=== PATIENT | female | born 1950 | race Caucasian/White ===

== ENCOUNTER 2016-06-10 11:24 | Observation (INO) ==
[2016-06-10] MEDS ORDERED: Aspirin 81 MG TAB.CHEW PO ONE (11:55)
--- NOTE | 2016-06-10 12:08 | Emergency Department Note ---
START Narrative - START START: I examined this patient and my medical decision-making was reviewed with the CENTER RECEPTIONIST/PA/Advanced Practice Nurse/Resident Physician. I agree with the documented findings, disposition and treatment plan as described except to the extent set forth below. ED attending: Patient's emergency medicine resident Dr. Quintanilla. Please see copy of this note for H&P evaluation and management and ED disposition. We both had independent [id number] time in contact with this patient. Briefly: 66-year-old female history of prior CVA presents with about 2 weeks of headache visual disturbances on the left side and pain in the left arm worse with movement. Discomfort with left arm movement slight visual disturbance in the left eye as far as blurriness but no visual field cut. No focal neurologic findings. CT of the head and neck are pending. Disposition pending. Patient stable.
[2016-06-10 12:38] LABS: Basophils # 0.1 K/mcL (0.0-0.2); Basophils % 0.8 %; Eosinophils # 0.2 K/mcL (0.0-0.6); Eosinophils % 1.8 %; Hematocrit 44.6 % (35.3-44.9); Immature Granulocytes % 0.3 % (0-4); Lymphocytes % 30.5 %; Mean Corpuscular HGB Conc 33.6 g/dL (31.6-35.5); Mean Corpuscular Hemoglobin 32.1 pg (28.0-33.3); Mean Corpuscular Volume 95.5 fL (83.0-100.0); Mean Platelet Volume 9.7 fL (9.4-12.4); Monocytes # 0.9 K/mcL (0.0-1.3); Monocytes % 9.4 %; Neutrophils # 5.5 K/mcL (1.6-8.9); Platelet Count 475 K/mcL (140-400); Red Blood Count 4.67 M/mcL (3.82-4.97); Red Cell Distribution Width 12.6 % (11.5-14.5); Segmented Neutrophils % 57.2 %
--- NOTE | 2016-06-10 12:39 | Emergency Department Note ---
Disposition Clinical Impression: Vision changes, Numbness and tingling in left arm Headache Qualifiers: Headache type: unspecified Headache chronicity pattern: unspecified pattern Intractability: not intractable Qualified Code(s): R51 - Headache Disposition: Home, Self-Care Condition: Critical Referrals: David Cherry MD [Primary Care Provider] - Forms: ED Satisfaction Letter Time of Disposition: 14:10 General Adult HPI - General Chief complaint: ED Headache Stated complaint: Headache/neck pain/left arm numb x5 days Time Seen by Provider: 06/10/16 11:36 Source: patient Limitations: no limitations Nursing Notes Reviewed: Yes Vital Signs Reviewed: Yes - History of Present Illness HPI Narrative: Mrs. Lucas, a 66yo female, presents from home by POV with CC: headache, left arm tingling. Hx seizure on Keppra, denies recent seizure, no missed doses of Keppra, no hx trauma. Headache onset 2.5 weeks ago, localized at the occipotal base without radiation. Associated with intermittent double vision which gives her difficulty ambulating, midline and paraspinal neck pain worrse with flexion and head rotation. 4 days ago, her left arm began tingling with numbness. Localized from fingertip to the level of the shoulder. Admits: headache, neck pain, vision changes, left arm tingling and numbness. Denies: fever, chills, weakness, falls or trauma, recent seizures, changes in hearing, denies room spinning, chest pain, palpitations. PMH: seizure disorder, hx CVA 2/2 seizure disorder (patient notes no resulting sequale or neuro deficits), Aortic stenosis with murmor recommended for valve replacement. Pain Scale: 9 - Related Data Home Medications Medication Instructions Recorded Confirmed Aspirin [Adult Low Dose Aspirin EC] 07/07/15 Calcium 07/07/15 Coq10 07/07/15 Endocet 10-325 mg Tablet 07/07/15 Fish Oil 07/07/15 Levetiracetam 07/07/15 Fxxrv-Hkuhgsh-Etppengc Tablet 07/07/15 Neurontin 07/07/15 Oyster Shell Calcium-Magnes Tb 07/07/15 Ranitidine HCl 07/07/15 Tizanidine HCl 07/07/15 TraZODone 07/07/15 Xanax 07/07/15 Zocor 07/07/15 07/07/15 Previous Rx's Medication Instructions Recorded Doxycycline 100 mg PO BID #42 capsule 07/07/15 Promethazine [Phenergan] 25 mg PO Q6-8H PRN #9 tablet 07/07/15 Benzonatate [Tessalon] 200 mg PO TID PRN #30 capsule 02/08/16 Cephalexin [Keflex] 500 mg PO QID #40 capsule 02/08/16 MethylPREDNISolone [Medrol] 4 mg PO TAPER #21 tablet 02/08/16 Allergies Allergy/AdvReac Type Severity Reaction Status Date / Time midazolam [From Versed] Allergy Agitated Verified 02/08/16 10:33 morphine AdvReac Nausea Verified 05/20/15 13:07 All systems ED: reviewed and negative except as stated. (as per HPI) Past Medical History - Past Medical History Medical history: Reports: COPD, hyperlipidemia, hypertension, seizures, valvular heart disease - Social History Smoking Status: Current every day smoker Smokeless Tobacco Status: No Alcohol use: Reports: none Drug use: Reports: marijuana Physical Exam General: Patient is alert, oriented, and in no acute distress. HEENT: No facial asymmetry at rest. YES facial asymmetry with smile, eyebrow raise, mild left ptosis. Head is normocephalic and atraumatic. PERRLA, EOMI. Nasal turbinates moist and pink. Posterior pharynx without exudates or cobblestoning. Trachea midline. No lymphadenopathy. Cardiovascular: Heart regular rate and rhythm without clicks, rubs, gallops. Grade 3/5 holosystolic murmor ar RUSB with radiation to right carotid. No JVD. PMI nondisplaced. Respiratory: Symmetric chest rise with good respiratory effort. Bilateral breath sounds are clear without wheezing, crackles, or rhonchi. Abdomen: Bowel sounds present normoactive x-4 quadrants. Abdomen is soft, nondistended, and nontender. No organomegaly noted. Musculoskeletal: Muscle strength 5/5 and symmetric bilaterally in upper and lower extremities. DTRs 2/4 and symmetric bilaterally in upper and lower extremities. Reproducable skeletal pain paracervical spine and upper shoulder. Neuro: Cranial nerves II through XII without deficit. Sensation to pinprick deficit in left UE from level of fingertips to approximate AC joint. Psych: Patient's affect is appropriate for situation. - General Limitations: no limitations General appearance: alert, in no apparent distress Course Course Narrative: Will perform stroke work-up. Will not call code stroke as patient's symptoms have persisted for 2.5 weeks. Concern is for intracranial pathology. NIHSS 1 - partial facial asymmetry Patient's Labwork unremarkable, specifically negative troponin, unremarkable electrolytes. CT head, CT neck, and CXR negative. Chest X-Ray 06/10/16 11:56 IMPRESSION: No acute cardiopulmonary findings. D/ / Eleanor Tolentino MD / Eleanor Tolentino MD Interpreting Provider: Eleanor Tolentino MD Head CT 06/10/16 11:58 IMPRESSION: No acute intracranial abnormality. Sphenoid sinus disease as above. D/ / Shun Monsivais MD / Shun Monsivais MD Interpreting Provider: Shun Monsivais MD Cervical Spine CT 06/10/16 12:05 IMPRESSION: No evidence of acute fracture or subluxation. D/ / Pete Lazo MD / Pete Lazo MD Interpreting Provider: Pete Lazo MD Her headache improved mildly with acetaminophen. There is no family bedside to confirm timeline of symptoms or chronicity of her facial motor sighs. After discussion with patient, she would be unable to follow-up with her PCP until Monday. She preferred to come in for continue work-up. 14:[address] Pagan, she agrees to admit to obs. Vital Signs Temperature 98.5 F 06/10/16 11:25 Pulse Rate 71 06/10/16 11:25 Respiratory Rate 16 06/10/16 11:25 Blood Pressure 108/77 06/10/16 11:25 O2 Sat by Pulse Oximetry 93 L 06/10/16 11:25 Temperature 98.5 F 06/10/16 11:25 Pulse Rate 57 06/10/16 13:30 Respiratory Rate 16 06/10/16 13:30 Blood Pressure 108/67 06/10/16 13:30 O2 Sat by Pulse Oximetry 98 06/10/16 13:30 Oxygen Delivery Oxygen Delivery Nasal Cannula Medical Decision Making - Lab Data Result diagrams: 06/10/16 12:30 06/10/16 12:30 Lab Results 06/10/16 06/10/16 06/10/16 Range/Units 12:22 12:30 12:30 WBC 9.7 (4.3-11.1) K/mcL RBC 4.67 (3.82-4.97) M/mcL Hgb 15.0 (11.5-15.4) g/dL Hct 44.6 (35.3-44.9) % MCV 95.5 (83.0-100.0) fL MCH 32.1 (28.0-33.3) pg MCHC 33.6 (31.6-35.5) g/dL RDW 12.6 (11.5-14.5) % Plt Count 475 H (140-400) K/mcL MPV 9.7 (9.4-12.4) fL Immature Gran % 0.3 (0-4) % Seg Neutrophils % 57.2 % Lymphocytes % 30.5 % Monocytes % 9.4 % Eosinophils % 1.8 % Basophils % 0.8 % Neutrophils # 5.5 (1.6-8.9) K/mcL Lymphocytes # 3.0 (0.6-4.6) K/mcL Monocytes # 0.9 (0.0-1.3) K/mcL Eosinophils # 0.2 (0.0-0.6) K/mcL Basophils # 0.1 (0.0-0.2) K/mcL PT 11.4 (9.4-12.1) Seconds INR 1.1 APTT 29.9 (26.0-36.0) Seconds Sodium (136-145) mEq/L Potassium (3.5-4.5) mEq/L Chloride (98-109) mEq/L Carbon Dioxide (19-29) mEq/L BUN (7-20) mg/dL Creatinine (0.57-1.11) mg/dL Est GFR ( Amer) (> 60) Est GFR (Non-Af Amer) (> 60) BUN/Creatinine Ratio (6-26) Glucose (70-99) mg/dL POC Glucose 99 H (58-89) Calculated Osmolality (280-300) Calcium (8.6-10.8) mg/dL Troponin I (0-0.03) ng/mL 06/10/16 02 Range/Units 12:30 12:30 WBC (4.3-11.1) K/mcL RBC (3.82-4.97) M/mcL Hgb (11.5-15.4) g/dL Hct (35.3-44.9) % MCV (83.0-100.0) fL MCH (28.0-33.3) pg MCHC (31.6-35.5) g/dL RDW (11.5-14.5) % Plt Count (140-400) K/mcL MPV (9.4-12.4) fL Immature Gran % (0-4) % Seg Neutrophils % % Lymphocytes % % Monocytes % % Eosinophils % % Basophils % % Neutrophils # (1.6-8.9) K/mcL Lymphocytes # (0.6-4.6) K/mcL Monocytes # (0.0-1.3) K/mcL Eosinophils # (0.0-0.6) K/mcL Basophils # (0.0-0.2) K/mcL PT (9.4-12.1) Seconds INR APTT (26.0-36.0) Seconds Sodium 140 (136-145) mEq/L Potassium 5.1 H (3.5-4.5) mEq/L Chloride 104 (98-109) mEq/L Carbon Dioxide 26 (19-29) mEq/L BUN 22 H (7-20) mg/dL Creatinine 0.72 (0.57-1.11) mg/dL Est GFR ( Amer) > 60 (> 60) Est GFR (Non-Af Amer) > 60 (> 60) BUN/Creatinine Ratio 31 H (6-26) Glucose 94 (70-99) mg/dL POC Glucose (58-89) Calculated Osmolality 293 (280-300) Calcium 9.9 (8.6-10.8) mg/dL Troponin I 0.01 (0-0.03) ng/mL
[2016-06-10 12:43] LABS: INR 1.1; Prothrombin Time 11.4 Seconds (9.4-12.1)
[2016-06-10 12:46] LABS: Activated Partial Thrombo Time 29.9 Seconds (26.0-36.0)
[2016-06-10 12:50] LABS: BUN/Creatinine Ratio 31 (6-26); Blood Urea Nitrogen 22 mg/dL (7-20); Calcium 9.9 mg/dL (8.6-10.8); Carbon Dioxide 26 mEq/L (19-29); Chloride 104 mEq/L (98-109); Glucose 94 mg/dL (70-99); Osmolality,Calculated 293 (280-300); Sodium 140 mEq/L (136-145); eGFR For African Americans > 60 (> 60); eGFR For Non-African Americans > 60 (> 60)
[2016-06-10 12:51] LABS: Potassium 5.1 mEq/L (3.5-4.5)
[2016-06-10] MEDS ORDERED: Ipratropium/Albuterol Neb 3 ML IH PRN (16:15)
[2016-06-10] MEDS ORDERED: *HR* Morphine 2 MG/ML SYRINGE IV PRN (16:15)
[2016-06-10] MEDS ORDERED: Acetaminophen 325 MG TABLET PO PRN (16:16)
[2016-06-10] MEDS ORDERED: Naloxone 0.4 MG/ML INJ IVP PRN (16:16)
[2016-06-10] MEDS ORDERED: Ondansetron 4 MG/2 ML VIAL IVP PRN (16:16)
--- NOTE | 2016-06-10 16:24 | Internal Med History&Physical ---
Date of Encounter: 06/10/16 Time of Encounter: 16:21 Assessment and Plan (1) Ptosis of eyelid, left Current visit: Yes Status: Acute History of CVA with no apparent residues Continue aspirin, neuro checks MRI of the brain (Dr. Islas recommended an MRI, the fact that the patient has a spinal rods should not interfere with this procedure, okay per neurology) Carotid ultrasound and echocardiogram PTOT, subcutaneous heparin, statin, check a lipid panel Fall precautions (2) Diplopia Current visit: Yes Status: Acute (3) Seizure Current visit: Yes Status: Acute Continue Keppra (4) Aortic stenosis Current visit: Yes Status: Acute Severe aortic stenosis Mentions that she was told that she has not been able to have a surgical procedure she has not been able to quit smoking Arctic valve area 0.6 in 2015 Qualifiers: Cardiac valve disease etiology: etiology unspecified Qualified Code(s): I35.0 - Nonrheumatic aortic (valve) stenosis (5) COPD (chronic obstructive pulmonary disease) Current visit: Yes Status: Acute No exacerbation Inhalers as needed Qualifiers: COPD type: emphysema Emphysema type: unspecified Qualified Code(s): J43.9 - Emphysema, unspecified (6) Headache Current visit: Yes Status: Acute Qualifiers: Headache type: unspecified Headache chronicity pattern: unspecified pattern Intractability: not intractable Qualified Code(s): R51 - Headache (7) Numbness and tingling in left arm Current visit: Yes Status: Acute (8) Sinusitis Current visit: Yes Status: Acute Continue Rocephin Qualifiers: Sinusitis location: sphenoidal Chronicity: acute Recurrence: not specified as recurrent Qualified Code(s): J01.30 - Acute sphenoidal sinusitis , unspecified (9) Tobacco abuse Current visit: Yes Status: Acute Smoking cessation counseling given for 5 min Nicotine patch (10) Bronchitis Current visit: Yes Status: Acute Possibly bacterial Continue Rocephin The patient will be admitted for observation. Full code. Time spent on this admission 40 minutes. High risk due to prior CVA with new symptoms. We receive omeprazole for GI prophylaxis and subcutaneous tennis happening for DVT prophylaxis. Internal Medicine - H&P: HPI Chief complaint: Eyelid weakness and double vision Admitted From: Emergency Dept History of present illness: Ms. Lucas is a 66 year old female with a past medical history of tobacco abuse, possible prior CVA, COPD not oxygen dependent, hyperlipidemia and seizure disorder currently on Keppra [facility] complaining of left eyelid weakness for the past 3 weeks accompanied by double vision and left upper extremity numbness. Patient has been also complaining of occipital headache for more than 2 weeks also neck pain. CT scan of the head was performed that did not show any acute intracranial hemorrhage or abnormality, showed sphenoid left sinus disease with a fluid level. Patient's potassium has been 5.1 platelets 475 she said that she had a viral respiratory infection 3 weeks ago and still has a productive cough. She feels dizzy at times and double vision worsens with movement. CT scan of the neck did not show any major abnormality except for mild multilevel osseous neural foraminal narrowing. Has been feeling very weak. Denies any chest pain Past Med Surg Social Fam HX - Past Medical History Medical history: COPD, hyperlipidemia, hypertension, seizures (Not oxygen dependent using Keppra), valvular heart disease (Severe aortic stenosis not able to have a replacement as she has not been able to stop smoking), other (CVA , severe aortic stenosis with a possible bicuspid valve aortic valve area of 0.6 last echocardiogram of October 2014 with an ejection fraction of 65-70%, mild diastolic dysfunction, insomnia, anxiety, GERD, left subclavian artery stenoses , osteoporosis, benzodiazepine overdose in the past, tobacco use, COPD not oxygen dependent) Psychiatric history: anxiety, depression (Psychiatry admissions in the past) - Past Surgical History Surgical History: appendectomy, hysterectomy, orthopedic, other (Left shoulder total replacement, back surgery with rods for fixation) - Social History Smoking Status: Current every day smoker Packs per day: 0.5, smoke 1 and 1-1/2 packs per day in the past Smokeless Tobacco Status: No Alcohol use: none Drug use: marijuana - Family History Mother Hx Family Cardiac Disorders: Yes (HI) - Additional Family History Additional family history: Sister with throat cancer and mother with CHF Internal Medicine - H&P: Meds Albuterol Sulfate [Albuterol Inhaler] 2 puff IH Q4HR PRN 06/10/16 [History] Alprazolam [Xanax 1 MG Tablet] 1 mg PO TID PRN 06/10/16 [History] Aspirin [Lo-Dose Aspirin EC] 81 mg PO DAILY 06/10/16 [History] Bupropion HCl [Zyban] 150 mg PO BID 06/10/16 [History] Calcium Carbonate/Vitamin D3 [Oyster Shell Calcium-Vit D Tab] 1 tab PO DAILY 07/22 [History] Denosumab [Prolia (For Outpatient Infusion)] 60 mg SQ [id number] 06/10/16 [History ] Ergocalciferol (VITAMIN D2) [Vitamin D2] 50,000 unit PO QWEEK 06/10/16 [History] Gabapentin [Neurontin] 600 mg PO BID 06/10/16 [History] Ipratropium/Albuterol Neb [Duoneb] 3 ml IH Q6HR PRN 06/10/16 [History] LevETIRAcetam [Keppra] 500 mg PO BID 06/10/16 [History] Metoprolol [Lopressor] 12.5 mg PO BID 06/10/16 [History] Multivitamin [Multi-Day Vitamins] 1 tab PO DAILY 06/10/16 [History] Jerome-3 Fatty Acids [Fish Oil] 300 mg PO BID 06/10/16 [History] Oxycodone HCl/Acetaminophen [Percocet 7.5-325 mg Tablet] 1 tab PO TID PRN [History] Ranitidine HCl [Acid Client Experience Manager] 150 mg PO BID PRN 06/10/16 [History] Simvastatin [Zocor] 20 mg PO DAILY 06/10/16 [History] Tizanidine HCl [Zanaflex] 4 mg PO TID PRN 06/10/16 [History] TraZODone 50 mg PO HS 06/10/16 [History] Ubidecarenone [Co Q-10] 10 mg PO DAILY 06/10/16 [History] Allergies midazolam [From Versed] Allergy (Verified 02/08/16 10:33) Agitated morphine Allergy (Verified 06/10/16 14:41) Itching All Systems PM: A 10-system review of systems was performed and is negative for pertinent findings except as documented above in the HPI. Review of systems: Complains of left upper extremity weakness at baseline from prior total right shoulder shoulder replacement. Denies any chest pain, short of breath, no abdominal pain, no dysuria, no fevers. Other systems out of the 10 review were negative - Constitutional Vitals: Temp Pulse Resp BP Pulse Ox 97.6 F 56 16 110/83 97 06/10/16 15:49 06/10/16 15:49 06/10/16 15:49 06/10/16 15:49 06/10/16 15:49 General appearance: Present: A&O X 3, underweight - Head Head exam: Present: atraumatic, normocephalic Additional comments: Left palpebral ptosis - Eye Eye exam: Present: PERRL, conjuntiva pink, sclera anicteric Pupils: Present: PERRL - Neck Neck exam general surgery: Present: supple, trachea midline. Absent: lymphadenopathy - Respiratory Respiratory exam: Present: CTAB. Absent: accessory muscle use, rales, rhonchi, wheezes - Cardiovascular Cardiovascular exam: Present: RRR, +S1, +S2, systolic murmur (Severe 3/6 systolic murmur radiating to the aortic area). Absent: diastolic murmur, gallop , rubs - GI/Abdominal GI/Abdominal exam: Present: normal bowel sounds, soft, no peritoneal signs. Absent: distended, tenderness - Extremities Exam Extremities exam: Present: warm, radial pulses palpable and symetrical. Absent : calf tenderness, cyanotic, pedal edema - Neurological Exam Neurological exam: Present: CN II-XII intact, oriented X3, no focal deficits. Absent: pronater drift, facial droop, speech deficit Additional comments: Left upper extremity weakness due to prior shoulder surgery, numbness almost the entire left upper extremity sparing the hand - Skin Skin exam: Present: dry, intact Internal Med - H&P Results - Labs CBC & Chem 7: 06/10/16 12:30 06/10/16 12:30
[2016-06-10] MEDS: Aspirin Enteric Coated 81 MG Tablet PO SCH (18:23)
[2016-06-10] MEDS: Nicotine 21 MG PATCH.TD24 TD SCH (18:23)
[2016-06-10] MEDS: 0.9 % Sodium Chloride 1,000 ML IVC SCH (18:24)
[2016-06-10] MEDS: ALPRAZolam 1 MG TABLET PO PRN (19:29)
[2016-06-10] MEDS ORDERED: traZODone 50 MG TABLET PO SCH (21:00)
[2016-06-10] MEDS: levETIRAcetam 250 MG TABLET PO SCH (21:16)
[2016-06-10] MEDS: *HR* OxyCODONE/APAP 7.5/325 TABLET PO PRN (21:16)
[2016-06-10] MEDS: BuPROPion SR (12 HR) 150 MG TABLET PO SCH (21:17)
[2016-06-10] MEDS: Gabapentin 300 MG CAPSULE PO SCH (21:17)
[2016-06-10] MEDS: *HR* Heparin 5,000 UNIT/ML VIAL SQ SCH (23:05)
[2016-06-11] MEDS: ALPRAZolam 1 MG TABLET PO PRN ×2 (04:07→12:14)
[2016-06-11 04:30] LABS: BUN/Creatinine Ratio 25 (6-26); Blood Urea Nitrogen 16 mg/dL (7-20); Calcium 8.8 mg/dL (8.6-10.8); Carbon Dioxide 23 mEq/L (19-29); Chloride 108 mEq/L (98-109); Chol/HDL Ratio 3.2 (0-4.9); Cholesterol 129 mg/dL (< 200); Glucose 85 mg/dL (70-99); HDL Cholesterol 40 mg/dL (40-59); LDL Cholesterol,Calculated 72 mg/dL (0-99); Osmolality,Calculated 288 (280-300); Sodium 139 mEq/L (136-145); Triglycerides 83 mg/dL (< 150); eGFR For African Americans > 60 (> 60); eGFR For Non-African Americans > 60 (> 60)
[2016-06-11 04:36] LABS: Potassium 3.9 mEq/L (3.5-4.5)
[2016-06-11] MEDS: *HR* OxyCODONE/APAP 7.5/325 TABLET PO PRN ×2 (06:38→14:34)
--- NOTE | 2016-06-11 07:59 | ECHO - Doppler Report ---
Echo with Saline Contrast Name: Aida Lucas Date of Study: 06/10/2016 Date: 1950 Ht: 59.0 in Medical Record#: [id number] Age: 66 Wt: 93.0 lb Gender: Female BSA: 1.33 Order #: [id number] Location: [facility] Room #: [id number] Reading Physician: Feliberto Joaquin DO, FACMarya, EMRE BHATT Offset Assistant Press Operator: Marija Marrufo RDCS Ordering Physician: Stephan Garcia MD Primary Physician: David Cherry MD Indications: Cerebrovascular Accident Impressions: LVEF 60-65%. Normal LV chamber size and function. Mild concentric left ventricular hypertrophy. Mild left ventricular diastolic dysfunction. Normal right ventricular structure and function. No evidence of PFO with agitated saline contrast. Aortic valve not well visualized. The number of leaflets cannot be determined. Grossly, the aortic valve is calcified. Critical aortic stenosis. Mean gradient 62 mmHg. Peak velocity 5.21 m/s. STACY < 0.7 cm2. Unable to estimate RVSP due to lack of TR jet. Message sent to Dr. Garcia via [employer]. Left Ventricular Wall Motion: Rest Echo Findings All wall segments showed normal motion. Findings: Study Quality * Technically adequate exam. ECG Findings * Sinus bradycardia. Left Ventricle * LVEF 60-65%. * Normal LV chamber size and function. * Mild concentric left ventricular hypertrophy. * Mild left ventricular diastolic dysfunction. Right Ventricle * Normal right ventricular structure and function. Left Atrium * Mildly dilated left atrium. Right Atrium * Normal right atrial size. Interatrial Septum * No evidence of PFO with agitated saline contrast. Aortic Valve * Aortic valve not well visualized. The number of leaflets cannot be determined. * Grossly, the aortic valve is calcified. * Critical aortic stenosis. Mean gradient 62 mmHg. Peak velocity 5.21 m/s. STACY < 0.7 cm2. * No aortic regurgitation. Mitral Valve * Mildly thickened mitral valve leaflets. * No mitral regurgitation. * No mitral stenosis. Tricuspid Valve * Normal tricuspid valve structure and function. * No tricuspid regurgitation. * Unable to estimate RVSP due to lack of TR jet. Pulmonic Valve * No pulmonic stenosis. * No pulmonic regurgitation. Aorta * Portions of the aortic root visualized appear normal in size. Pericardium * The pericardium appears normal. IVC * Normal IVC dimensions and inspiratory collapse. Pulmonary Artery * Normal visualized portions of the main pulmonary artery. History Hypertension Hypercholesteremia History of Smoking Years Packs 1 Valvular Disease 10/06/2014 a Previous Echo was performed. Contrast: Agitated saline 20 ml. Measurements: BP: 110/ 2D Normal Values RVIDd: 2.00 cm <2.7 cm IVSd: 1.20 cm 0.6 - 1.0 cm LVIDd: 4.54 cm 3.7 - 5.6 cm LVPWd: 1.20 cm 0.6 - 1.1 cm LVIDs: 2.61 cm 1.5 - 3.6 cm AO: 2.20 cm < 4.0 cm LA: 3.10 cm 2.0 - 4.0cm %FS: 42.50 cm >25 % LVOT Diam: 1.85 cm LA volume: 44 Mitral Valve Peak E:.53 m/sec Peak A:1.11 m/sec E/A Ratio:0.5 Peak E' Lat Jose:5.72 cm/s Peak E' Med Jose:5.35 cm/s E/E' Lat Ratio:9.3 E/E' Med Ratio:9.9 LVOT Peak Jose:1.05 m/sec Mean Jose:.75 m/sec Peak Grad:4.00 mmHg Mean Grad:2.67 mmHg Aortic Valve Peak Jose:5.14 m/sec Mean Jose:3.47 m/sec Peak Grad:106.00 mmHg Mean Grad:56.00 mmHg Valve Area:.59 cm2 Tricuspid Valve TV Regurg Peak Grad: 17.00mmHg TV Regurg Peak Jose: 2.08m/sec Updated by Feliberto Joaquin DO, FACMarya, MILLER, FASCAMILLA on 06/11/2016 7:50:00 AM electronically signed on 06/11/2016 7:54:55 AM with status of Final Wall Motion Ferreira: 1=Normal, 2=Hypokinesis, 3=Akinesis, 4=Dyskinesis, 5=Aneurysmal, 6=Hyperkinetic, X=Not Visualized (Blank)=Missing
[2016-06-11] MEDS ORDERED: CALCIUM CARBONATE PO SCH (09:00)
[2016-06-11] MEDS ORDERED: VITAMIN D3 PO SCH (09:00)
[2016-06-11] MEDS: BuPROPion SR (12 HR) 150 MG TABLET PO SCH (10:01)
[2016-06-11] MEDS: *HR* Heparin 5,000 UNIT/ML VIAL SQ SCH (10:01)
[2016-06-11] MEDS: levETIRAcetam 250 MG TABLET PO SCH (10:01)
[2016-06-11] MEDS: Nicotine 21 MG PATCH.TD24 TD SCH (10:01)
[2016-06-11] MEDS: Aspirin Enteric Coated 81 MG Tablet PO SCH (10:02)
[2016-06-11] MEDS: 0.9 % Sodium Chloride 1,000 ML IVC SCH (10:02)
[2016-06-11] MEDS: Gabapentin 300 MG CAPSULE PO SCH (10:02)
[2016-06-11 11:10] VITALS: BP 105/62
--- NOTE | 2016-06-11 12:39 | Neurology - Consult Note ---
Date of Encounter: 06/11/16 Time of Encounter: 12:35 Assessment and Plan (1) TIA (transient ischemic attack) Current Visit: Yes Status: Acute Patient has multiple medical issues, including multiple risk factors for CVA, especially small vessel ischemia including HTN, smoking. Developed diplopia, balance difficulty, left arm numbness, lasting less than 24 hours. Multiple symptoms, difficult to localize except those from posterior circulation. Will continue Aspirin but prefer 325mg instead of 81mgdaily. Risk factor modification for TIA and CVA. follow up with Neurology in 2-3 weeks to assess carotid artery duplex if not already done. Qualifiers: Transient cerebral ischemia type: unspecified Qualified Code(s): G45.9 - Transient cerebral ischemic attack, unspecified (2) White matter abnormality on MRI of brain Current Visit: Yes Status: Acute This dose appear to be of small vessel ischemia, and pattern is not consistent with demyelinating disorder. This appears to be quite extensive and could contribute to her memory difficulty and chronic cognitive impairment. Smoking cessation advised. (3) Seizure Current Visit: Yes Status: Acute No recurrent seizure, well controlled on keppra monotherapy. Continue keppra no changes History of Present Illness Chief complaint: balance difficulty, left arm numbness and double vision HPI: Ms. Lucas is a 66 year old female with PMH significant for carotid artery disease, COPD, anxiety, chronic pain, aortic valve stenosis per history, seizure disorder who presented to the ER with new onset of double vision, balance difficulty, and left arm numbness. Says that she sees double when looking at you. When cover one eye the double vision went away. Also has left arm numbness from the wrist to the upper arm. At the onset of her symptoms she also felt unsteady but no fall. Symptoms lasted few hours and gradually improved. AT this time, she says that her symptoms are all gone and that she wants to go home. MRI of brain showed no acute infarct. Significant white matter signal changes noted. Echocardiography completed and carotid artery duplex is pending Past Med Surg Social Fam HX - Past Medical History Medical history: COPD, hyperlipidemia, hypertension, seizures (Not oxygen dependent using Keppra), valvular heart disease (Severe aortic stenosis not able to have a replacement as she has not been able to stop smoking), other (CVA , severe aortic stenosis with a possible bicuspid valve aortic valve area of 0.6 last echocardiogram of October 2014 with an ejection fraction of 65-70%, mild diastolic dysfunction, insomnia, anxiety, GERD, left subclavian artery stenoses , osteoporosis, benzodiazepine overdose in the past, tobacco use, COPD not oxygen dependent) Psychiatric history: anxiety, depression (Psychiatry admissions in the past) - Past Surgical History Surgical History: appendectomy, hysterectomy, orthopedic, other (Left shoulder total replacement, back surgery with rods for fixation) - Social History Smoking Status: Current every day smoker Packs per day: 0.5, smoke 1 and 1-1/2 packs per day in the past Smokeless Tobacco Status: No Alcohol use: none Drug use: marijuana - Family History Mother Hx Family Cardiac Disorders: Yes ([place]) Medications and Allergies Albuterol Sulfate [Albuterol Inhaler] 2 puff IH Q4HR PRN 06/10/16 [History] Alprazolam [Xanax 1 MG Tablet] 1 mg PO TID PRN 06/10/16 [History] Aspirin [Lo-Dose Aspirin EC] 81 mg PO DAILY 06/10/16 [History] Bupropion HCl [Zyban] 150 mg PO BID 06/10/16 [History] Calcium Carbonate/Vitamin D3 [Oyster Shell Calcium-Vit D Tab] 1 tab PO DAILY 07/22 [History] Denosumab [Prolia (For Outpatient Infusion)] 60 mg SQ [id number] 06/10/16 [History ] Ergocalciferol (VITAMIN D2) [Vitamin D2] 50,000 unit PO QWEEK 06/10/16 [History] Gabapentin [Neurontin] 600 mg PO BID 06/10/16 [History] Ipratropium/Albuterol Neb [Duoneb] 3 ml IH Q6HR PRN 06/10/16 [History] LevETIRAcetam [Keppra] 500 mg PO BID 06/10/16 [History] Metoprolol [Lopressor] 12.5 mg PO BID 06/10/16 [History] Multivitamin [Multi-Day Vitamins] 1 tab PO DAILY 06/10/16 [History] [place]-3 Fatty Acids [Fish Oil] 300 mg PO BID 06/10/16 [History] Oxycodone HCl/Acetaminophen [Percocet 7.5-325 mg Tablet] 1 tab PO TID PRN [History] Ranitidine HCl [Acid Barrel Endshake Adjuster] 150 mg PO BID PRN 06/10/16 [History] Simvastatin [Zocor] 20 mg PO DAILY 06/10/16 [History] Tizanidine HCl [Zanaflex] 4 mg PO TID PRN 06/10/16 [History] TraZODone 50 mg PO HS 06/10/16 [History] Ubidecarenone [Co Q-10] 10 mg PO DAILY 06/10/16 [History] Allergies midazolam [From Versed] Allergy (Verified 02/08/16 10:33) Agitated morphine Allergy (Verified 06/10/16 14:41) Itching All Systems: A 10-system review of systems was performed and is negative for pertinent findings except as documented above in the HPI. Physical Examination - Vital Signs Vital Signs: Initial Vital Signs Temp Pulse Resp BP Pulse Ox 98.5 F 71 16 108/77 93 L 06/10/16 11:25 06/10/16 11:25 06/10/16 11:25 06/10/16 11:25 06/10/16 11:25 - Constitutional General appearance: comfortable - Neurologic Sensorimotor examination: intact Detailed motor examination: grossly full strength in all extremities Motor examination - right side: 5/5: deltoids, biceps, triceps, wrist flexion, wrist extension, switch operator, hip flexors, tibialis Anterior, quadriceps, toe extension (EHL), plantarflexion Motor examination - left side: 5/5: deltoids, biceps, triceps, wrist flexion, wrist extension, hip flexors, switch operator, quadriceps, tibialis Anterior, toe extension (EHL), plantarflexion Detailed sensory examination: intact Posture: other (N[place]) Reflex and gait examination: intact Reflexes: Biceps: 2+, Triceps: 2+, Brachioradialis: 2+, Patella: 2+, Achilles: 2 + Mental Status Examination: awake, alert, oriented to person, oriented to place, oriented to time, follows commands appropriately, answers questions appropriately, no agnosia, no aphasia, no aproxia Cranial nerve examination: PERRL, EOMI (few horizontal nystagmus noted, non sustained), visual anna intact, corneal reflexes brisk symmetrically, sensory to face intact, mastication intact, no facial asymmetry is present, no dysarthria, hearing is intact symmetrically, soft palate elevates bilaterally upon phonation, gag reflex intact, flexes SCM and trapezius muscles symmetrically with full power, tongue protrudes midline, no atrophy or facial fasiculations present Results - Laboratory Findings CBC and BMP: 06/10/16 12:30 06/11/16 03:58 Abnormal lab findings: Abnormal lab results Plt Count 475 K/mcL (140-400) H 06/10/16 12:30 POC Glucose 99 (58-89) H 06/10/16 12:22 Consult Discharge Plan - Plan Referrals: David Cherry MD [Primary Care Provider] -
--- NOTE | 2016-06-11 13:13 | Carotid Imaging Report ---
Carotid Duplex Patient Name:Aida Lucas Order Number:[id number] Procedure Date:06/10/2016 Date:1950ge:66 yrs Gender:Female Height: cm / inWeight:42.18 kg / 93.00 lb Rt.BP:110 / 83 mmHgHeart Rate: Location:[facility] Room #: 3B41 Parking Line Painter:Marija Marrufo RDCS Referring MD:Stephan Garcia MD mangle press catcher:David Cherry MD Reading MD:Dariusz Jones MD Primary Indications:Cerebrovascular Accident Risk Factors Yes/No Hypertension Yes Hypercholesterolemia Yes Smoking Current Yes Impressions: Findings: Bilateral carotid system has nonstenotic plaque. Recommendations: Test completed on 06/10/2016 at 8:26:00 pm. Findings Carotid Duplex: Right: The right proximal common carotid artery has a PSV of 67 cm/s and a EDV of 18 cm/s. The right mid common carotid artery has a PSV of 97 cm/s and a EDV of 21 cm/s. The right distal common carotid artery has a PSV of 60 cm/s and a EDV of 22 cm/s. The right bifurcation has a PSV of 53 cm/s and a EDV of 19 cm/s. There is nonstenotic plaque in the right proximal internal carotid artery with a PSV of 54 cm/s and a EDV of 20 cm/s. There is smooth heterogeneous plaque. The right mid internal carotid artery has a PSV of 98 cm/s and a EDV of 32 cm/s. The right distal internal carotid artery has a PSV of 83 cm/s and a EDV of 32 cm/s. The right eca has a PSV of 65 cm/s and a EDV of 14 cm/s. The right vertebral artery has a PSV of 62 cm/s and a EDV of 18 cm/s. There is antegrade spectral Doppler flow patterns. Left: The left proximal common carotid artery has a PSV of 62 cm/s and a EDV of 15 cm/s. The left mid common carotid artery has a PSV of 78 cm/s and a EDV of 17 cm/s. The left distal common carotid artery has a PSV of 74 cm/s and a EDV of 24 cm/s. The left bifurcation has a PSV of 43 cm/s and a EDV of 14 cm/s. The left proximal internal carotid artery has a PSV of 68 cm/s and a EDV of 22 cm/s. The left mid internal carotid artery has a PSV of 82 cm/s and a EDV of 24 cm/s. The left distal internal carotid artery has a PSV of 70 cm/s and a EDV of 20 cm/s. The left eca has a PSV of 56 cm/s and a EDV of 11 cm/s. The left proximal internal carotid, left mid internal carotid and left distal internal carotid arteries were not well visualized. Prior Study: No significant change compared to prior study dated: 11/04/2014. Carotid Results Right PSV EDV Assessment Proximal CCA 67 18 Mid CCA 97 21 Distal CCA 60 22 Bifurcation 53 19 Proximal ICA 54 20 Non Stenotic Plaque Mid ICA 98 32 Distal ICA 83 32 ECA 65 14 Vertebral Artery 62 18 Antegrade Flow Left PSV EDV Assessment Proximal CCA 62 15 Mid CCA 78 17 Distal CCA 74 24 Bifurcation 43 14 Proximal ICA 68 22 Not Well Visualized Mid ICA 82 24 Not Well Visualized Distal ICA 70 20 Not Well Visualized ECA 56 11 Ratio's Right ICA/CCA Ratio: 1.01 ICA/CCA Values: 98/97 Left ICA/CCA Ratio: 1.05 ICA/CCA Values: 82/78 Updated by Dariusz Jones MD on 06/11/2016 1:07:48 PM electronically signed on 06/11/2016 1:08:02 PM with status of Final
--- NOTE | 2016-06-11 13:21 | Discharge Summary ---
Date of Encounter: 06/11/16 Time of Encounter: 13:21 - Discharge Diagnosis (1) Ptosis of eyelid, left Priority: Primary Status: Acute Comments: CVA Ruled out (2) Diplopia Priority: Secondary Status: Acute (3) Seizure Priority: Secondary Status: Acute (4) Aortic stenosis Priority: Secondary Status: Acute Qualifiers: Cardiac valve disease etiology: etiology unspecified Qualified Code(s): I35.0 - Nonrheumatic aortic (valve) stenosis (5) COPD (chronic obstructive pulmonary disease) Priority: Secondary Status: Acute Qualifiers: COPD type: emphysema Emphysema type: unspecified Qualified Code(s): J43.9 - Emphysema, unspecified (6) Headache Priority: Secondary Status: Acute Qualifiers: Headache type: unspecified Headache chronicity pattern: unspecified pattern Intractability: not intractable Qualified Code(s): R51 - Headache (7) Numbness and tingling in left arm Priority: Secondary Status: Acute (8) Sinusitis Priority: Secondary Status: Acute Qualifiers: Sinusitis location: sphenoidal Chronicity: acute Recurrence: not specified as recurrent Qualified Code(s): J01.30 - Acute sphenoidal sinusitis , unspecified (9) Tobacco abuse Priority: Secondary Status: Acute (10) Bronchitis Priority: Secondary Status: Acute - Discharge Medications Prescriptions: Amoxicillin [Amoxil] 500 mg PO TID #18 capsule Aspirin [Lo-Dose Aspirin EC] 325 mg PO DAILY #30 tablet.dr Home Medications: Albuterol Sulfate [Albuterol Inhaler] 2 puff IH Q4HR PRN 06/10/16 [History] Alprazolam [Xanax 1 MG Tablet] 1 mg PO TID PRN 06/10/16 [History] Bupropion HCl [Zyban] 150 mg PO BID 06/10/16 [History] Calcium Carbonate/Vitamin D3 [Oyster Shell Calcium-Vit D Tab] 1 tab PO DAILY 07/22 [History] Denosumab [Prolia (For Outpatient Infusion)] 60 mg SQ [id number] 06/10/16 [History ] Ergocalciferol (VITAMIN D2) [Vitamin D2] 50,000 unit PO QWEEK 06/10/16 [History] Gabapentin [Neurontin] 600 mg PO BID 06/10/16 [History] Ipratropium/Albuterol Neb [Duoneb] 3 ml IH Q6HR PRN 06/10/16 [History] LevETIRAcetam [Keppra] 500 mg PO BID 06/10/16 [History] Metoprolol [Lopressor] 12.5 mg PO BID 06/10/16 [History] Multivitamin [Multi-Day Vitamins] 1 tab PO DAILY 06/10/16 [History] [place]-3 Fatty Acids [Fish Oil] 300 mg PO BID 06/10/16 [History] Oxycodone HCl/Acetaminophen [Percocet 7.5-325 mg Tablet] 1 tab PO TID PRN [History] Ranitidine HCl [Acid Manager [place]] 150 mg PO BID PRN 06/10/16 [History] Simvastatin [Zocor] 20 mg PO DAILY 06/10/16 [History] Tizanidine HCl [Zanaflex] 4 mg PO TID PRN 06/10/16 [History] TraZODone 50 mg PO HS 06/10/16 [History] Ubidecarenone [Co Q-10] 10 mg PO DAILY 06/10/16 [History] Amoxicillin [Amoxil] 500 mg PO TID #18 capsule 06/11/16 [Rx] Aspirin [Lo-Dose Aspirin EC] 325 mg PO DAILY #30 tablet. 06/11/16 [Rx] Allergies/Adverse Reactions: Allergies midazolam [From Versed] Allergy (Verified 02/08/16 10:33) Agitated morphine Allergy (Verified 06/10/16 14:41) Itching Procedures/tests Complete & Pending: Procedures Performed prior 72 hours Category Date Time Status MR head/brain wo con [MR] Routine MRI 06/10/16 16:10 Completed EV carotid duplex imaging BI Routine Y 06/10/16 16:16 Completed EV echocardiogram Routine Y 06/10/16 16:16 Completed Date of admission: 06/10/16 14:31 Primary care physician: David Cherry MD Consults: 06/10/16 16:18 Consult to Occupational Therapy [CONS] Routine Comment: Evaluate, develop and implement POC Consult to Physical Therapy [CONS] Routine Comment: Evaluate, develop and implement POC 06/10/16 16:47 Consult to Neurology [CONS] Routine Consulting Provider: [facility] Reason for Consult: cva Call Completed: Yes - Patient Status Disposition: Home, Self-Care Condition: Fair - Discharge Instructions Follow Up With: David Cherry MD [Primary Care Provider] - Additional Instructions: Follow with primary care physician within the next 7 days. Increase aspirin up to 325 mg daily. Complete 6 more days of amoxicillin. Follow with neurology within the next 2 weeks. Quit smoking - Diet and Activity Activity: increase activity as tolerated Diet: low fat, low cholesterol Hospital course: Ms. Lucas is a 66 year old female with a past medical history of hyperlipidemia , hypertension, seizures (Not oxygen dependent using Keppra), valvular heart disease (Severe aortic stenosis not able to have a replacement as she has not been able to stop smoking), other (CVA, severe aortic stenosis with a possible bicuspid valve aortic valve area of 0.6 last echocardiogram of October 2014 with an ejection fraction of 65-70%, mild diastolic dysfunction, insomnia, anxiety, GERD, left subclavian artery stenoses, osteoporosis, benzodiazepine overdose in the past, tobacco use, COPD not oxygen dependent) Came to the emergency room complaining of left eyelid weakness for the past 3 weeks accompanied by double vision and left upper extremity numbness. Patient has been also complaining of occipital headache for more than 2 weeks also neck pain. CT scan of the head was performed that did not show any acute intracranial hemorrhage or abnormality, showed sphenoid left sinus disease with a fluid level. Patient's potassium has been 5.1 platelets 475 she said that she had a viral respiratory infection 3 weeks ago and still has a productive cough. She feels dizzy at times and double vision worsens with movement. CT scan of the neck did not show any major abnormality except for mild multilevel osseous neural foraminal narrowing. Has been feeling very weak. Denied any chest pain. MRI of the brain did not show any acute infarct although showed volume loss with moderate chronic white matter microvascular ischemic changes mainly characterized by foci of the periventricular white matter. Carotid ultrasound showed bilateral nonstenotic Plaque. Echocardiogram showed again severe aortic stenosis, ejection fraction of 60-65% and mild diastolic dysfunction aortic valve area is less than 0.7 cm. Was evaluated by the neurology service and was recommended to increase her dose of ASA up to 325 mg daily . Smoking cesssation counseling given for 5 min . The patient needs to follow-up with [facility] to consider again aortic valve replacement. She was started on Rocephin due to possible acute bacterial bronchitis and will be discharged on amoxicillin. Time spent discussing smoking cessation with patient: 3 to 10 minutes - Time Spent with Patient Total time spent providing and/or coordinating discharge services: Greater than 30 minutes (40 minutes) - Constitutional Vitals: Temp Pulse Resp BP Pulse Ox 97.3 F L 59 16 105/62 97 06/11/16 11:04 06/11/16 11:04 06/11/16 11:04 06/11/16 11:04 06/11/16 11:04 General appearance: Present: A&O X 3, underweight - Head Head exam: Present: atraumatic, normocephalic - Eye Eye exam: Present: PERRL, conjuntiva pink, sclera anicteric Pupils: Present: PERRL - Neck Neck exam general surgery: Present: supple, trachea midline. Absent: lymphadenopathy - Respiratory Respiratory exam: Present: CTAB. Absent: accessory muscle use, rales, rhonchi, wheezes - Cardiovascular Cardiovascular exam: Present: RRR, +S1, +S2, systolic murmur (Severe 3/6 systolic murmur radiating to the aortic area). Absent: diastolic murmur, gallop , rubs - GI/Abdominal GI/Abdominal exam: Present: normal bowel sounds, soft, no peritoneal signs. Absent: distended, tenderness - Extremities Exam Extremities exam: Present: warm, radial pulses palpable and symetrical. Absent : calf tenderness, cyanotic, pedal edema - Neurological Exam Neurological exam: Present: CN II-XII intact, oriented X3, no focal deficits. Absent: pronater drift, facial droop, speech deficit - Skin Skin exam: Present: dry, intact
== END 2016-06-11 15:00 | disposition home or self-care (01) ==
LOC: 3BNU 11:24 → EMEROO 11:24 → 3BNU 15:27
PROVIDERS: ADMIT Internal Medicine; ATTEND Nurse Practitioner Family